=== PATIENT | male | born 1935 | race Caucasian/White ===

== ENCOUNTER 2016-06-27 19:21 | Emergency (ER) | payer MEDICARE ==
[~2016-06-27] VITALS: Ht 162.6 cm; Wt 88.5 kg
[~2016-06-27 19:21] MED LIST: ADVAIR DIS14 PUFF/IN INH; APRESOLINE25 MG PO; DEMADEX20 MG PO; DUONEB 3.0-0.5 M3 ML INH; IMODIUM A-D2 MG PO; NEURONTIN300 MG PO; OS-CAL 500+D31 EAC1 PO; PROAIR HFA8.5 GM INH; TENORMIN25 MG PO; TENORMIN50 MG PO
== END 2016-06-27 22:10 | disposition short-term general hospital (02) ==
LOC: ER 19:21
DX: J10.1 Influenza due to other identified influenza virus with other respiratory manifestations (principal); I12.9 Hypertensive chronic kidney disease with stage 1 through stage 4 chronic kidney disease, or unspecified chronic kidney disease; N18.9 Chronic kidney disease, unspecified; Z88.0 Allergy status to penicillin; Z88.1 Allergy status to other antibiotic agents; Z79.899 Other long term (current) drug therapy; Z87.891 Personal history of nicotine dependence; E78.5 Hyperlipidemia, unspecified; Z86.73 Personal history of transient ischemic attack (TIA), and cerebral infarction without residual deficits; Z90.49 Acquired absence of other specified parts of digestive tract